=== PATIENT | male | born 1935 | race African-American/Black ===

== ENCOUNTER 2017-03-01 12:53 | Inpatient (IN) ==
[2017-03-01] MEDS ORDERED: NS 1,000 ML IV ONE (14:02)
[2017-03-01 14:22] LABS: MANUAL DIFF NEEDED? NO
[2017-03-01 14:30] LABS: BASO% 0.3 % (0.0-0.8); EOS% 0.7 % (0.0-10.0); HEMATOCRIT 32.2 % (42.0-52.0); HEMOGLOBIN 10.7 g/dL (14.0-18.0); IMM GRAN# 0.08 X1000 (0.0-0.04); IMM GRAN% 0.5 % (0.0-0.5); LYMPH# 1.87 X1000 (1.2-3.4); LYMPH% 12.4 % (20.5-51.1); MCH 28.5 PG (27-31); MCHC 33.2 g/dL (33-37); MCV 85.6 FL (81-99); MONO# 1.02 X1000 (0.11-0.59); MONO% 6.8 % (1.7-9.3); MPV 10.3 FL (7.4-10.4); NEUT% 79.3 % (42.2-75.2); PLT 389 X1000 (130-400); RBC 3.76 XMIL (4.7-6.1)
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
[2017-03-01 14:47] LABS: AGAP 12; ALBUMIN 2.6 g/dL (3.5-5.0); ALKALINE PHOSPHATASE 85 U/L (32-122); BUN 30 mg/dL (8-22); CALCIUM 9.5 mg/dL (8.8-10.2); CHLORIDE 93 mmol/L (98-107); COSMO 260; GOT 41 U/L (10-34); GPT 33 U/L (10-44); POTASSIUM 3.5 mmol/L (3.5-5.1); SODIUM 126 mmol/L (136-145); TCO2 21 mmol/L (25-35); TOTAL BILIRUBIN 0.42 mg/dL (0.20-1.00); TOTAL PROTEIN 7.7 g/dL (6.3-8.3)
[2017-03-01] MEDS ORDERED: ZOSYN 3.375 GM in NS 50 ML IV ONE (15:10)
--- NOTE | 2017-03-01 16:56 | Diag Imaging Result Doc PS360 ---
EXAM: CHEST-PORTABLE - 03/01/2017 HISTORY: r/o pna TECHNIQUE: Portable chest 4:51 PM COMPARISON: 01/25/2017 FINDINGS: Heart size appears within normal limits. There is elevation of left hemidiaphragm similar to the previous exam. There is subsegmental atelectasis of the bilateral lung bases. There is no consolidation, pleural effusion, or pneumothorax identified. IMPRESSION: Chronic elevation of left hemidiaphragm similar to the previous exam. Mild atelectasis at bilateral lung bases. No evidence of pneumonia. Electronically signed by Heri Solomon 03/01/2017 4:53 PM
[2017-03-01 17:22] LABS: IRON SATURATION 9 %; TIBC 172 ug/dL; TOTAL IRON 16 ug/dL (53-167); UNBOUND IRON 156 ug/dL (112-346)
[2017-03-01 17:25] LABS: FERRITIN 553 ng/mL (30-400)
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
[2017-03-01] MEDS ORDERED: ZOFRAN IV PRN (18:51)
[2017-03-01] MEDS ORDERED: VANCOMYCIN IV PER PHARMACY MISC SCH (18:51)
[2017-03-01] MEDS ORDERED: VANCOMYCIN 1,900 MG in NS 500 ML IV ONE (22:00)
[2017-03-01] MEDS: ZOSYN 3.375 GM in NS 50 ML IV SCH (22:34)
[2017-03-01] MEDS: NS 1,000 ML IV SCH (22:41)
[2017-03-02] MEDS: PERCOCET-5 PO PRN (01:58)
[2017-03-02] MEDS: TYLENOL PO PRN (03:23)
[2017-03-02] MEDS: HUMULIN R SUBQ SCH ×5 (05:45→21:35)
[2017-03-02] MEDS: PRILOSEC PO SCH (06:26)
[2017-03-02] MEDS: ZOSYN 3.375 GM in NS 50 ML IV SCH ×2 (06:26→11:22)
[2017-03-02 06:53] LABS: MANUAL DIFF NEEDED? NO
[2017-03-02 07:07] LABS: INR 1.18; PROTIME 12.5 Seconds (9.2-11.7); PTT 31.8 Seconds (22.0-36.0)
[2017-03-02 07:11] LABS: BASO% 0.2 % (0.0-0.8); EOS# 0.28 X1000 (0.0-0.7); EOS% 2.3 % (0.0-10.0); HEMATOCRIT 28.1 % (42.0-52.0); HEMOGLOBIN 8.9 g/dL (14.0-18.0); IMM GRAN# 0.04 X1000 (0.0-0.04); IMM GRAN% 0.3 % (0.0-0.5); LYMPH# 2.24 X1000 (1.2-3.4); LYMPH% 18.5 % (20.5-51.1); MCH 27.5 PG (27-31); MCHC 31.7 g/dL (33-37); MCV 86.7 FL (81-99); MONO# 0.93 X1000 (0.11-0.59); MONO% 7.7 % (1.7-9.3); MPV 10.2 FL (7.4-10.4); PLT 349 X1000 (130-400); RBC 3.24 XMIL (4.7-6.1)
[2017-03-02 07:12] LABS: HEMOGLOBIN A1C 5.8 % (4.8-6.0)
[2017-03-02 07:23] LABS: AGAP 10; ALBUMIN 2.4 g/dL (3.5-5.0); ALKALINE PHOSPHATASE 71 U/L (32-122); BUN 28 mg/dL (8-22); CALCIUM 9.2 mg/dL (8.8-10.2); CHLORIDE 99 mmol/L (98-107); COSMO 268; GOT 28 U/L (10-34); GPT 24 U/L (10-44); MAGNESIUM 1.7 mg/dL (1.5-2.7); POTASSIUM 3.3 mmol/L (3.5-5.1); SODIUM 131 mmol/L (136-145); TCO2 22 mmol/L (25-35); TOTAL BILIRUBIN 0.45 mg/dL (0.20-1.00)
[2017-03-02] MEDS: NICODERM PATCH TD SCH ×2 (09:29→09:31)
[2017-03-02] MEDS ORDERED: QUELICIN (DOSE) ONE (14:56)
[2017-03-02] MEDS ORDERED: ROBINUL ONE (14:56)
[2017-03-02] MEDS ORDERED: XYLOCAINE-MPF 2% ONE (14:56)
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
[2017-03-02] MEDS ORDERED: DIPRIVAN 1% ONE (16:28)
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
[2017-03-02] MEDS: MYCAMINE 100 MG in NS 100 ML IV SCH (21:00)
[2017-03-02] MEDS: LOVENOX SUBQ SCH (21:33)
[2017-03-02] MEDS: MAXIPIME 2 GM in NS 100 ML IV SCH (23:31)
[2017-03-03 00:12] LABS: URINE CULTURE NEEDED? NO; URINE SOURCE CLEAN CATCH
[2017-03-03 00:17] LABS: BILIRUBIN URINE NEGATIVE (NEGATIVE); BLOOD URINE TRACE (NEGATIVE); COLOR YELLOW; GLUCOSE URINE NEGATIVE (NEGATIVE); LEUKOCYTES URINE NEGATIVE (NEGATIVE); NITRITE URINE NEGATIVE (NEGATIVE); PH URINE 5.5; PROTEIN URINE 30 mg/dL (NEGATIVE); SP GRAVITY URINE 1.029; TURBIDITY URINE HAZY (CLEAR); URINE MICRO REVIEW NEEDED? YES; UROBILINOGEN URINE NORMAL (NORMAL)
[2017-03-03 00:38] LABS: UR EPITHELIAL CELLS <10 /HPF (<10); URINE BACTERIA NEGATIVE /HPF; URINE RBC <10 /HPF (<10); URINE WBC <10 /HPF (<10)
[2017-03-03 00:42] LABS: URINE CASTS NONE SEEN; URINE CRYSTALS NONE SEEN; URINE SMALL ROUND CELLS NONE SEEN
[2017-03-03] MEDS: VANCOMYCIN 1,100 MG in NS 250 ML IV SCH (01:53)
[2017-03-03] MEDS: NS 1,000 ML IV SCH (01:54)
[2017-03-03] MEDS: PRILOSEC PO SCH (06:38)
[2017-03-03 06:43] LABS: MANUAL DIFF NEEDED? NO
[2017-03-03] MEDS: HUMULIN R SUBQ SCH ×3 (06:50→16:00)
[2017-03-03 06:53] LABS: BASO% 0.4 % (0.0-0.8); EOS% 1.9 % (0.0-10.0); HEMOGLOBIN 8.6 g/dL (14.0-18.0); IMM GRAN# 0.03 X1000 (0.0-0.04); IMM GRAN% 0.3 % (0.0-0.5); LYMPH# 2.02 X1000 (1.2-3.4); LYMPH% 19.3 % (20.5-51.1); MCH 27.7 PG (27-31); MCHC 31.9 g/dL (33-37); MCV 86.8 FL (81-99); MONO# 0.71 X1000 (0.11-0.59); MONO% 6.8 % (1.7-9.3); MPV 10.4 FL (7.4-10.4); NEUT% 71.3 % (42.2-75.2); PLT 337 X1000 (130-400); RBC 3.11 XMIL (4.7-6.1)
[2017-03-03 07:07] LABS: AGAP 12; BUN 20 mg/dL (8-22); CALCIUM 8.3 mg/dL (8.8-10.2); CHLORIDE 102 mmol/L (98-107); COSMO 273; POTASSIUM 3.1 mmol/L (3.5-5.1); SODIUM 135 mmol/L (136-145); TCO2 21 mmol/L (25-35)
[2017-03-03] MEDS: MAXIPIME 2 GM in NS 100 ML IV SCH (10:59)
[2017-03-03] MEDS: NICODERM PATCH TD SCH (11:06)
[2017-03-03] MEDS ORDERED: POTASSIUM CHLORIDE 60 MEQ in NS 500 ML IV ONE (14:30)
[2017-03-03] MEDS ORDERED: CALMOSEPTINE OINTMENT TOP PRN (15:11)
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
[2017-03-03] MEDS: MYCAMINE 100 MG in NS 100 ML IV SCH (21:00)
[2017-03-03] MEDS: LOVENOX SUBQ SCH (21:25)
[2017-03-04] MEDS: VANCOMYCIN 1,100 MG in NS 250 ML IV SCH (01:16)
[2017-03-04] MEDS: MAXIPIME 2 GM in NS 100 ML IV SCH ×2 (01:16→11:52)
[2017-03-04] MEDS: HUMULIN R SUBQ SCH ×3 (04:31→18:44)
[2017-03-04] MEDS: PERCOCET-5 PO PRN (05:44)
[2017-03-04 07:00] LABS: MANUAL DIFF NEEDED? NO
[2017-03-04 07:08] LABS: BASO% 0.2 % (0.0-0.8); EOS# 0.22 X1000 (0.0-0.7); EOS% 2.4 % (0.0-10.0); HEMATOCRIT 26.9 % (42.0-52.0); HEMOGLOBIN 8.5 g/dL (14.0-18.0); IMM GRAN# 0.02 X1000 (0.0-0.04); IMM GRAN% 0.2 % (0.0-0.5); LYMPH# 2.05 X1000 (1.2-3.4); LYMPH% 22.3 % (20.5-51.1); MCH 27.3 PG (27-31); MCHC 31.6 g/dL (33-37); MCV 86.5 FL (81-99); MONO# 0.81 X1000 (0.11-0.59); MONO% 8.8 % (1.7-9.3); MPV 10.1 FL (7.4-10.4); NEUT% 66.1 % (42.2-75.2); PLT 363 X1000 (130-400); RBC 3.11 XMIL (4.7-6.1)
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
[2017-03-04 08:00] LABS: AGAP 11; BUN 11 mg/dL (8-22); CALCIUM 8.9 mg/dL (8.8-10.2); CHLORIDE 103 mmol/L (98-107); COSMO 271; POTASSIUM 3.3 mmol/L (3.5-5.1); SODIUM 136 mmol/L (136-145); TCO2 22 mmol/L (25-35)
[2017-03-04] MEDS: NICODERM PATCH TD SCH (11:52)
[2017-03-04] MEDS ORDERED: KLOR-CON PO ONE (13:56)
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
[2017-03-04] MEDS: MYCAMINE 100 MG in NS 100 ML IV SCH (21:14)
[2017-03-04] MEDS: LOVENOX SUBQ SCH (21:14)
[2017-03-05] MEDS: HUMULIN R SUBQ SCH ×5 (00:59→22:02)
[2017-03-05] MEDS: MAXIPIME 2 GM in NS 100 ML IV SCH (01:00)
[2017-03-05] MEDS ORDERED: VANCOMYCIN 1,750 MG in NS 250 ML IV SCH (01:00)
[2017-03-05] MEDS: PERCOCET-5 PO PRN (01:41)
[2017-03-05 06:30] LABS: MANUAL DIFF NEEDED? NO
[2017-03-05] MEDS: PRILOSEC PO SCH (06:34)
[2017-03-05] MEDS: TYLENOL PO PRN (06:38)
[2017-03-05 06:39] LABS: BASO% 0.3 % (0.0-0.8); EOS# 0.27 X1000 (0.0-0.7); EOS% 2.9 % (0.0-10.0); HEMATOCRIT 25.9 % (42.0-52.0); HEMOGLOBIN 8.1 g/dL (14.0-18.0); IMM GRAN# 0.03 X1000 (0.0-0.04); IMM GRAN% 0.3 % (0.0-0.5); LYMPH# 2.35 X1000 (1.2-3.4); LYMPH% 24.9 % (20.5-51.1); MCH 27.1 PG (27-31); MCHC 31.3 g/dL (33-37); MCV 86.6 FL (81-99); MONO# 0.75 X1000 (0.11-0.59); MONO% 7.9 % (1.7-9.3); NEUT% 63.7 % (42.2-75.2); PLT 364 X1000 (130-400); RBC 2.99 XMIL (4.7-6.1)
[2017-03-05 06:54] LABS: AGAP 12; BUN 11 mg/dL (8-22); CALCIUM 8.6 mg/dL (8.8-10.2); CHLORIDE 102 mmol/L (98-107); COSMO 275; SODIUM 136 mmol/L (136-145); TCO2 22 mmol/L (25-35)
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
[2017-03-05] MEDS: DIFLUCAN PO SCH (09:01)
[2017-03-05] MEDS: NICODERM PATCH TD SCH (09:01)
[2017-03-05] MEDS: KEFLEX PO SCH ×2 (09:01→16:45)
[2017-03-05] MEDS: LEVAQUIN PO SCH (09:01)
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
--- NOTE | 2017-03-05 14:00 | Extremity Venous Study ---
PROCEDURE NAME: Venous U/S Bilateral Legs - 03/02/2017 REFERRING PHYSICIAN: BRUNILDA Mcduffie. INTERPRETING PHYSICIAN: Jalen Rosario MD. BUSINESS INTELLIGENCE ADMINISTRATOR: Olivia. INDICATION: The patient has swelling in the right posterior knee area. FINDINGS: Bilateral lower extremity venous images accomplished. The common femoral, superficial femoral, deep femoral, popliteal, posterior tibial, peroneal, and greater saphenous are imaged bilaterally. Doppler is used to evaluate the veins for spontaneity, phasicity, respiratory excursion, and distal augmentation. All veins are compressible. Some reflux is noted in the right superficial femoral vein. INTERPRETATION: 1. No evidence of deep or superficial venous thrombosis in either lower extremity veins identified. 2. Reflux noted in the right superficial femoral vein. cc: MD Shelby Horton CRNP
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
[2017-03-05] MEDS: LOVENOX SUBQ SCH (22:03)
[2017-03-06] MEDS: KEFLEX PO SCH ×3 (00:43→15:13)
[2017-03-06] MEDS: PRILOSEC PO SCH (06:44)
[2017-03-06] MEDS: HUMULIN R SUBQ SCH ×3 (06:45→22:36)
[2017-03-06 07:18] LABS: MANUAL DIFF NEEDED? NO
[2017-03-06 07:27] LABS: BASO% 0.4 % (0.0-0.8); EOS% 2.6 % (0.0-10.0); HEMATOCRIT 28.6 % (42.0-52.0); HEMOGLOBIN 9.1 g/dL (14.0-18.0); IMM GRAN# 0.02 X1000 (0.0-0.04); IMM GRAN% 0.2 % (0.0-0.5); LYMPH# 2.43 X1000 (1.2-3.4); LYMPH% 21.1 % (20.5-51.1); MCH 27.2 PG (27-31); MCHC 31.8 g/dL (33-37); MCV 85.6 FL (81-99); MONO# 0.81 X1000 (0.11-0.59); MPV 9.8 FL (7.4-10.4); NEUT% 68.7 % (42.2-75.2); PLT 417 X1000 (130-400); RBC 3.34 XMIL (4.7-6.1)
[2017-03-06 07:56] LABS: AGAP 11; BUN 10 mg/dL (8-22); CHLORIDE 101 mmol/L (98-107); COSMO 271; POTASSIUM 3.1 mmol/L (3.5-5.1); SODIUM 136 mmol/L (136-145); TCO2 24 mmol/L (25-35)
[2017-03-06] MEDS: LEVAQUIN PO SCH (10:01)
[2017-03-06] MEDS: DIFLUCAN PO SCH (10:01)
[2017-03-06] MEDS: POTASSIUM CHLORIDE 60 MEQ in NS 500 ML IV SCH ×2 (14:50→22:33)
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
[2017-03-06] MEDS: LOVENOX SUBQ SCH (22:33)
[2017-03-07] MEDS: KEFLEX PO SCH ×4 (01:05→15:44)
[2017-03-07] MEDS: PRILOSEC PO SCH (06:17)
[2017-03-07] MEDS: HUMULIN R SUBQ SCH ×4 (06:17→20:03)
[2017-03-07 06:49] LABS: MANUAL DIFF NEEDED? NO
[2017-03-07 06:54] LABS: BASO% 0.4 % (0.0-0.8); EOS# 0.29 X1000 (0.0-0.7); EOS% 2.6 % (0.0-10.0); HEMATOCRIT 29.4 % (42.0-52.0); HEMOGLOBIN 9.3 g/dL (14.0-18.0); IMM GRAN# 0.03 X1000 (0.0-0.04); IMM GRAN% 0.3 % (0.0-0.5); LYMPH# 2.57 X1000 (1.2-3.4); LYMPH% 23.1 % (20.5-51.1); MCH 27.1 PG (27-31); MCHC 31.6 g/dL (33-37); MCV 85.7 FL (81-99); MONO# 0.84 X1000 (0.11-0.59); MONO% 7.6 % (1.7-9.3); MPV 9.6 FL (7.4-10.4); PLT 444 X1000 (130-400); RBC 3.43 XMIL (4.7-6.1)
[2017-03-07 07:18] LABS: AGAP 8; BUN 9 mg/dL (8-22); CALCIUM 8.7 mg/dL (8.8-10.2); CHLORIDE 100 mmol/L (98-107); COSMO 268; POTASSIUM 4.3 mmol/L (3.5-5.1); SODIUM 135 mmol/L (136-145); TCO2 27 mmol/L (25-35)
[2017-03-07] MEDS: LEVAQUIN PO SCH (08:10)
[2017-03-07] MEDS: DIFLUCAN PO SCH (08:11)
[2017-03-07 10:50] LABS: URINE CULTURE NEEDED? NO; URINE MICRO REVIEW NEEDED? NO; URINE SOURCE CATH
[2017-03-07 11:04] LABS: BILIRUBIN URINE NEGATIVE (NEGATIVE); BLOOD URINE NEGATIVE (NEGATIVE); COLOR YELLOW; GLUCOSE URINE NEGATIVE (NEGATIVE); LEUKOCYTES URINE NEGATIVE (NEGATIVE); NITRITE URINE NEGATIVE (NEGATIVE); PH URINE 5.5; PROTEIN URINE NEGATIVE (NEGATIVE); TURBIDITY URINE CLEAR (CLEAR); UROBILINOGEN URINE NORMAL (NORMAL)
[2017-03-07 11:06] LABS: UR EPITHELIAL CELLS <10 /HPF (<10); URINE BACTERIA NEGATIVE /HPF; URINE RBC <10 /HPF (<10); URINE WBC <10 /HPF (<10)
[2017-03-07] MEDS: TYLENOL PO PRN (13:05)
[2017-03-07] MEDS: PERCOCET-5 PO PRN (15:45)
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
[2017-03-07] MEDS: LOVENOX SUBQ SCH (20:05)
[2017-03-08] MEDS: KEFLEX PO SCH ×3 (00:19→16:44)
[2017-03-08] MEDS: PRILOSEC PO SCH (06:23)
[2017-03-08] MEDS: HUMULIN R SUBQ SCH ×4 (06:26→23:07)
[2017-03-08 06:47] LABS: MANUAL DIFF NEEDED? NO
[2017-03-08 06:56] LABS: BASO% 0.3 % (0.0-0.8); EOS# 0.36 X1000 (0.0-0.7); EOS% 3.6 % (0.0-10.0); HEMOGLOBIN 9.2 g/dL (14.0-18.0); IMM GRAN# 0.02 X1000 (0.0-0.04); IMM GRAN% 0.2 % (0.0-0.5); LYMPH# 2.25 X1000 (1.2-3.4); LYMPH% 22.3 % (20.5-51.1); MCH 27.4 PG (27-31); MCHC 31.7 g/dL (33-37); MCV 86.3 FL (81-99); MONO# 0.74 X1000 (0.11-0.59); MONO% 7.3 % (1.7-9.3); MPV 9.6 FL (7.4-10.4); NEUT% 66.3 % (42.2-75.2); PLT 413 X1000 (130-400); RBC 3.36 XMIL (4.7-6.1)
[2017-03-08 07:38] LABS: AGAP 13; BUN 14 mg/dL (8-22); CALCIUM 9.3 mg/dL (8.8-10.2); CHLORIDE 97 mmol/L (98-107); COSMO 269; POTASSIUM 4.2 mmol/L (3.5-5.1); SODIUM 134 mmol/L (136-145); TCO2 24 mmol/L (25-35)
[2017-03-08] MEDS: LEVAQUIN PO SCH (08:55)
[2017-03-08] MEDS: DIFLUCAN PO SCH (08:55)
[2017-03-08] MEDS: PRINIVIL PO SCH (14:28)
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
[2017-03-08] MEDS: ZOSYN 4.5 GM in NS 100 ML IV SCH (20:22)
[2017-03-08] MEDS: LOVENOX SUBQ SCH (20:22)
[2017-03-08] MEDS: PERCOCET-5 PO PRN (22:36)
[2017-03-09] MEDS: ZOSYN 4.5 GM in NS 100 ML IV SCH ×4 (02:00→21:02)
[2017-03-09] MEDS: HUMULIN R SUBQ SCH ×4 (06:16→21:03)
[2017-03-09] MEDS: PRILOSEC PO SCH ×2 (06:29→07:02)
[2017-03-09] MEDS: DIFLUCAN PO SCH (08:12)
[2017-03-09] MEDS: PRINIVIL PO SCH (08:12)
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
[2017-03-09] MEDS: PERCOCET-5 PO PRN (14:44)
[2017-03-09] MEDS: LOVENOX SUBQ SCH (21:02)
[2017-03-09] MEDS: VFEND PO SCH ×2 (21:04)
[2017-03-10] MEDS: ZOSYN 4.5 GM in NS 100 ML IV SCH ×3 (02:00→15:02)
[2017-03-10] MEDS: HUMULIN R SUBQ SCH ×2 (06:31→15:01)
[2017-03-10] MEDS: PRILOSEC PO SCH (06:32)
[2017-03-10] MEDS: VFEND PO SCH (08:32)
[2017-03-10] MEDS: PRINIVIL PO SCH (08:32)
[2017-03-10] MEDS: PERCOCET-5 PO PRN ×2 (08:33→19:09)
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
[2017-03-10 17:07] VITALS: BP 122/53
== END 2017-03-10 18:30 ==
LOC: ED 12:53 → 3N 18:11 → SUATTDRO 18:11
PROVIDERS: ATTEND Internal Medicine

== ENCOUNTER 2017-03-24 18:30 | Inpatient (IN) ==
[2017-03-24] MEDS ORDERED: VANCOMYCIN 1 GM/NS 1 GM/250 ML IVPB IV ONE (20:19)
[2017-03-24] MEDS ORDERED: ZOSYN 3.375 GM in NS 50 ML IV ONE (20:19)
[2017-03-24 20:20] LABS: MANUAL DIFF NEEDED? NO
[2017-03-24 20:29] LABS: BASO% 0.4 % (0.0-0.8); EOS# 0.31 X1000 (0.0-0.7); EOS% 2.9 % (0.0-10.0); HEMATOCRIT 27.3 % (42.0-52.0); HEMOGLOBIN 8.9 g/dL (14.0-18.0); IMM GRAN# 0.03 X1000 (0.0-0.04); IMM GRAN% 0.3 % (0.0-0.5); LYMPH% 33.1 % (20.5-51.1); MCH 26.7 PG (27-31); MCHC 32.6 g/dL (33-37); MONO# 1.04 X1000 (0.11-0.59); MONO% 9.6 % (1.7-9.3); MPV 9.6 FL (7.4-10.4); NEUT% 53.7 % (42.2-75.2); PLT 437 X1000 (130-400); RBC 3.33 XMIL (4.7-6.1)
[2017-03-24 20:35] LABS: INR 1.13; PTT 31.5 Seconds (22.0-36.0)
--- NOTE | 2017-03-24 20:37 | Diag Imaging Result Doc PS360 ---
EXAM: CHEST-PORTABLE HISTORY: OR TECHNIQUE: Semiupright portable COMPARISON: 03/01/2017 FINDINGS: The left hemidiaphragm is elevated. Heart is not enlarged. The vessels are not distended. No pneumonia. No pleural effusions identified. Long-standing arthritic changes to each shoulder. IMPRESSION: Stable chest Electronically signed by Isidro Magaña 03/24/2017 8:34 PM
[2017-03-24 20:39] LABS: AGAP 11; ALBUMIN 2.9 g/dL (3.5-5.0); ALKALINE PHOSPHATASE 172 U/L (32-122); BUN 10 mg/dL (8-22); CALCIUM 9.2 mg/dL (8.8-10.2); CHLORIDE 96 mmol/L (98-107); COSMO 270; GOT 51 U/L (10-34); GPT 32 U/L (10-44); POTASSIUM 3.6 mmol/L (3.5-5.1); SODIUM 136 mmol/L (136-145); TCO2 29 mmol/L (25-35); TOTAL BILIRUBIN 0.37 mg/dL (0.20-1.00); TOTAL PROTEIN 7.7 g/dL (6.3-8.3)
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
--- NOTE | 2017-03-24 20:58 | EKG Report ---
Test Performed on : 03/24/2017 8:40:50 PM Test Reason : pre op Blood Pressure : / mmHG Vent. Rate : 079 BPM Atrial Rate : 079 BPM P-R Int : 110 ms QRS Dur : 118 ms QT Int : 430 ms P-R-T Axes : 005 016 055 degrees QTc Int : 493 ms Sinus rhythm. with short MN Incomplete right bundle branch block Prolonged QT Abnormal ECG When compared with ECG of 25-JAN-2017 20:32, Criteria for Inferior infarct are no longer present Nonspecific T wave abnormality now evident in Inferior leads Nonspecific T wave abnormality now evident in Lateral leads Unconfirmed Result
[2017-03-24 21:22] LABS: URINE MICRO REVIEW NEEDED? NO; URINE SOURCE CATH
[2017-03-24 21:27] LABS: BILIRUBIN URINE NEGATIVE (NEGATIVE); BLOOD URINE MODERATE (NEGATIVE); COLOR YELLOW; GLUCOSE URINE NEGATIVE (NEGATIVE); LEUKOCYTES URINE MODERATE (NEGATIVE); NITRITE URINE NEGATIVE (NEGATIVE); PH URINE 6.5; PROTEIN URINE 50 mg/dL (NEGATIVE); SP GRAVITY URINE 1.022; TURBIDITY URINE HAZY (CLEAR); UROBILINOGEN URINE 6 mg/dL (NORMAL)
[2017-03-24 21:28] LABS: UR EPITHELIAL CELLS <10 /HPF (<10); URINE BACTERIA NEGATIVE /HPF; URINE CULTURE NEEDED? YES; URINE RBC TNTC /HPF (<10)
[2017-03-24] MEDS ORDERED: ZOFRAN IV PRN (23:13)
[2017-03-24] MEDS ORDERED: NORCO-7.5 PO PRN (23:13)
[2017-03-24] MEDS ORDERED: VANCOMYCIN IV PER PHARMACY MISC SCH (23:13)
[2017-03-24] MEDS ORDERED: NS 1,000 ML IV SCH (23:13)
[2017-03-25] MEDS: ZOSYN 3.375 GM in NS 50 ML IV SCH ×4 (02:00→22:04)
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
[2017-03-25 06:31] LABS: MANUAL DIFF NEEDED? NO
[2017-03-25 06:36] LABS: BASO% 0.5 % (0.0-0.8); EOS# 0.37 X1000 (0.0-0.7); EOS% 3.8 % (0.0-10.0); HEMATOCRIT 27.5 % (42.0-52.0); HEMOGLOBIN 8.8 g/dL (14.0-18.0); IMM GRAN# 0.02 X1000 (0.0-0.04); IMM GRAN% 0.2 % (0.0-0.5); LYMPH# 2.61 X1000 (1.2-3.4); LYMPH% 26.9 % (20.5-51.1); MCH 26.3 PG (27-31); MCV 82.3 FL (81-99); MONO# 0.82 X1000 (0.11-0.59); MONO% 8.5 % (1.7-9.3); MPV 9.3 FL (7.4-10.4); NEUT% 60.1 % (42.2-75.2); PLT 412 X1000 (130-400); RBC 3.34 XMIL (4.7-6.1)
[2017-03-25] MEDS: HUMALOG SUBQ SCH ×4 (07:00→22:05)
[2017-03-25 07:19] LABS: AGAP 11; BUN 9 mg/dL (8-22); CHLORIDE 100 mmol/L (98-107); COSMO 275; POTASSIUM 3.5 mmol/L (3.5-5.1); SODIUM 139 mmol/L (136-145); TCO2 28 mmol/L (25-35)
[2017-03-25] MEDS: HEPARIN SUBQ SCH ×2 (09:54→22:23)
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
[2017-03-25] MEDS ORDERED: D50W SYRINGE IV ONE (15:28)
[2017-03-25] MEDS: D5 NS 1,000 ML IV SCH (16:24)
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
[2017-03-25] MEDS ORDERED: XYLOCAINE-MPF 2% ONE (19:02)
[2017-03-25] MEDS ORDERED: DIPRIVAN 1% ONE (19:03)
[2017-03-25] MEDS ORDERED: MORPHINE ONE (19:40)
[2017-03-25] MEDS ORDERED: DILAUDID ONE (20:48)
[2017-03-25] MEDS ORDERED: NAROPIN 0.5% ONE (20:49)
[2017-03-25] MEDS ORDERED: NS 1,000 ML ONE (21:32)
[2017-03-25] MEDS ORDERED: SODIUM CHLORIDE 0.9% INJ PRN (21:35)
[2017-03-25] MEDS ORDERED: PHENERGAN IV PRN (21:35)
[2017-03-25] MEDS: NS 1,000 ML IV SCH (21:59)
[2017-03-25] MEDS: APRESOLINE IV PRN (22:55)
[2017-03-26] MEDS: D5 NS 1,000 ML IV SCH ×2 (00:20→18:11)
[2017-03-26] MEDS: ZOSYN 3.375 GM in NS 50 ML IV SCH ×4 (02:53→22:37)
[2017-03-26] MEDS: MORPHINE IV PRN ×4 (02:55→18:48)
[2017-03-26 05:12] LABS: MANUAL DIFF NEEDED? NO
[2017-03-26 05:41] LABS: AGAP 11; BUN 10 mg/dL (8-22); CALCIUM 8.9 mg/dL (8.8-10.2); CHLORIDE 101 mmol/L (98-107); COSMO 276; MAGNESIUM 1.7 mg/dL (1.5-2.7); POTASSIUM 3.9 mmol/L (3.5-5.1); SODIUM 139 mmol/L (136-145); TCO2 27 mmol/L (25-35)
[2017-03-26 05:42] LABS: BASO% 0.3 % (0.0-0.8); EOS% 2.1 % (0.0-10.0); HEMATOCRIT 36.3 % (42.0-52.0); IMM GRAN# 0.03 X1000 (0.0-0.04); IMM GRAN% 0.2 % (0.0-0.5); MCH 27.6 PG (27-31); MCHC 33.1 g/dL (33-37); MCV 83.6 FL (81-99); MONO# 0.93 X1000 (0.11-0.59); MONO% 6.6 % (1.7-9.3); MPV 9.7 FL (7.4-10.4); NEUT% 73.8 % (42.2-75.2); PLT 423 X1000 (130-400); RBC 4.34 XMIL (4.7-6.1)
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
[2017-03-26] MEDS: LOVENOX SUBQ SCH (05:56)
[2017-03-26] MEDS: HUMALOG SUBQ SCH ×4 (06:12→22:26)
[2017-03-26] MEDS: PERIDEX MT SCH ×2 (09:32→22:36)
[2017-03-26] MEDS ORDERED: VANCOMYCIN 1.5 GM in NS 250 ML IV ONE (11:00)
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
[2017-03-26] MEDS: NS 1,000 ML IV SCH (12:44)
[2017-03-26] MEDS: SANTYL OINT TOP SCH (15:11)
--- NOTE | 2017-03-26 16:32 | PROGRESS NOTE ---
DATE: 03/26/2017 SUBJECTIVE: This patient is lying comfortably in bed. He is complaining of right stump pain/discomfort. He is sleepy but arousable. He has been having bowel movements. OBJECTIVE: Vital Signs: Temperature 97.2 degrees, pulse 93, respiratory rate 12, blood pressure 155/72, oxygen saturation 97% on room air. HEENT: Head normocephalic. No trauma. PERRLA. Neck: Supple. No JVD. No masses. Central trachea. Chest: Clear to auscultation. No wheezing. No rales. Abdomen: Soft, nontender, nondistended. No hepatosplenomegaly. Extremities: Right AKA that is covered with a dressing. No signs of bleed. Surgery Department following. Neurological Examination: The patient is sleepy but arousable. Following commands. LABORATORY: WBC 14.1, hemoglobin 12, hematocrit 36.3, platelets 423,000. Sodium 139, potassium 3.9, chloride 101, bicarbonate 27, BUN 11, BUN 10, creatinine 0.7, glucose 81, calcium 8.9. ASSESSMENT AND PLAN: 1. Right leg necrotic wound status post right above knee amputation, continue with same management and pain medication. Physical Therapy on board. Surgery Department following this patient. 2. History of hypertension. I will put this patient back on lisinopril. His kidney function is fine. 3. Type 2 diabetes. Continue with sliding scale insulin and pattern blood sugar. 4. This patient is status post right above knee amputation. Probably he will need to be sent to a rehabilitation facility or long-term. At this moment he is really sleepy so I could not have a long conversation with the patient. No family members at the bedside. I stopped his vancomycin and I will continue with Zosyn. Blood culture and urine culture have been negative for the past 48 hours. If tomorrow nothing has grown on those cultures, probably also we will stop the Zosyn, but since his white blood cells are elevated I will keep him on that antibiotic for now. cc: Saran Quintero MD
[2017-03-26] MEDS: APRESOLINE IV PRN (16:41)
[2017-03-26] MEDS: TYLENOL PO PRN (16:41)
[2017-03-27] MEDS: MORPHINE IV PRN ×3 (00:27→14:16)
[2017-03-27] MEDS: NS 1,000 ML IV SCH ×2 (02:47→16:03)
[2017-03-27] MEDS: ZOSYN 3.375 GM in NS 50 ML IV SCH ×4 (02:47→20:24)
[2017-03-27 05:29] LABS: MANUAL DIFF NEEDED? NO
[2017-03-27 05:34] LABS: BASO% 0.2 % (0.0-0.8); EOS# 0.24 X1000 (0.0-0.7); EOS% 1.8 % (0.0-10.0); HEMATOCRIT 31.8 % (42.0-52.0); HEMOGLOBIN 10.7 g/dL (14.0-18.0); IMM GRAN# 0.06 X1000 (0.0-0.04); IMM GRAN% 0.4 % (0.0-0.5); LYMPH% 21.3 % (20.5-51.1); MCH 28.1 PG (27-31); MCHC 33.6 g/dL (33-37); MCV 83.5 FL (81-99); MONO# 1.25 X1000 (0.11-0.59); MONO% 9.2 % (1.7-9.3); MPV 9.5 FL (7.4-10.4); NEUT% 67.1 % (42.2-75.2); PLT 384 X1000 (130-400); RBC 3.81 XMIL (4.7-6.1)
[2017-03-27] MEDS: D5 NS 1,000 ML IV SCH ×2 (05:41→09:12)
[2017-03-27 05:54] LABS: AGAP 13; BUN 9 mg/dL (8-22); CALCIUM 8.2 mg/dL (8.8-10.2); CHLORIDE 100 mmol/L (98-107); COSMO 272; POTASSIUM 3.6 mmol/L (3.5-5.1); SODIUM 137 mmol/L (136-145); TCO2 24 mmol/L (25-35)
[2017-03-27] MEDS: HUMALOG SUBQ SCH ×4 (06:32→21:05)
[2017-03-27] MEDS: LOVENOX SUBQ SCH (06:34)
[2017-03-27] MEDS: PRINIVIL PO SCH (09:15)
[2017-03-27] MEDS: PERIDEX MT SCH ×2 (09:17→20:25)
--- NOTE | 2017-03-27 10:53 | PROGRESS NOTE ---
DATE: 03/27/2017 INDICATIONS: Mr. Lance Graham Jr is an 81-year-old black male who is now postop day 2 from a right bkwpl-nhz-zwir amputation for gangrene involving his right leg. Today, he awakens. He is in some pain at the amputation site. He did not eat breakfast. His rpxig-ere-mmeq amputation is dressed and the dressing is dry. OBJECTIVE: His heart rate is 83-103. Blood pressure 155/75. O2 saturation 99%. He does have a Frias catheter tube in place to keep his azvsm-lbu-ovyw amputation site clean. He had a bowel movement several days ago. DIAGNOSTIC DATA: His hematocrit is 32%. White blood cell count is 13.6 and that is down from 14. His BUN is 9 and creatinine 0.7. PLAN: He has a trapeze bar over is bed. We have our wound care nurse checking on how healthy his skin is, especially posteriorly above his buttocks. We have asked physical therapy to help him improve his strength and start teaching him about transfers. We will leave this dressing in place at this time. He is remaining on IV antibiotics and we will continue those until is white blood cell count tends towards normal. He is on vancomycin and Zosyn. We need to encourage nutrition. cc: Moni Stephenson MD
[2017-03-27] MEDS ORDERED: VANCOMYCIN 1 GM/NS 1 GM/250 ML IVPB IV SCH (11:00)
[2017-03-27] MEDS ORDERED: VANCOMYCIN IV PER PHARMACY MISC SCH (15:00)
[2017-03-27] MEDS: SANTYL OINT TOP SCH (16:01)
[2017-03-27] MEDS: VANCOMYCIN 1 GM/NS 1 GM/250 ML IVPB IV SCH (16:42)
[2017-03-27] MEDS: TYLENOL PO PRN (16:47)
--- NOTE | 2017-03-27 17:02 | PROGRESS NOTE ---
DATE: 03/27/2017 SUBJECTIVE: This patient is lying comfortably in bed. He is alert and oriented x3. He is complaining of right stump pain/discomfort. He is tolerating p.o., but sometimes he is just eating some bites. Physical therapy is on board. He looks a little bit better today compared with yesterday. OBJECTIVE: Vital Signs: Temperature 98 degrees, pulse 97, respiratory rate 18, blood pressure 150/69, oxygen saturation 100% on room air. HEENT: Head normocephalic. No trauma. PERRLA. Neck: Supple. No JVD. No masses. Central trachea. Chest: Clear to auscultation. No wheezing. No rales. Abdomen: Soft, nontender, nondistended. No hepatosplenomegaly. Extremities: He has a right AKA that is covered with a dressing. No signs of active bleed. Surgery department following. Neurological: The patient is alert. He is oriented x3. He is following commands. LABORATORY DATA: WBC 13.6, hemoglobin 10.7, hematocrit 31.8, platelets 384,000. Sodium 137, potassium 3.6, chloride 100, bicarbonate 24, BUN 9, creatinine 0.7, glucose 80, calcium 8.2. ASSESSMENT AND PLAN: 1. Right leg necrotic wound, status post right todic-wxh-kqhp amputation. Continue with the same management and pain medication. Physical therapy on board. Surgery department is following this patient closely. 2. History of hypertension. Blood pressure is around 150s. I will put this patient on amlodipine 2.5 mg by mouth twice a day, and if the blood pressure is still elevated, I will increase it to 5 twice a day. 3. Type 2 diabetes. Continue with sliding scale insulin and pattern blood sugars. 4. Leukocytosis. Continue with antibiotics. WBC is a little bit better. The cultures have been negative. Probably in 1 or 2 days, we are going to be able to stop it. 5. Physical deconditioning. Physical therapy is on board, and hopefully he will be discharged to a rehabilitation center at the beginning of the next week. cc: Saran Quintero MD
[2017-03-27] MEDS: NORVASC PO SCH (20:24)
[2017-03-28] MEDS: ZOSYN 3.375 GM in NS 50 ML IV SCH ×4 (02:59→20:45)
[2017-03-28] MEDS: MORPHINE IV PRN ×2 (03:02→05:04)
[2017-03-28 05:54] LABS: MANUAL DIFF NEEDED? NO
[2017-03-28] MEDS: LOVENOX SUBQ SCH (06:02)
[2017-03-28 06:06] LABS: BASO% 0.2 % (0.0-0.8); EOS# 0.34 X1000 (0.0-0.7); EOS% 2.7 % (0.0-10.0); HEMATOCRIT 31.4 % (42.0-52.0); HEMOGLOBIN 10.4 g/dL (14.0-18.0); IMM GRAN# 0.05 X1000 (0.0-0.04); IMM GRAN% 0.4 % (0.0-0.5); LYMPH# 2.63 X1000 (1.2-3.4); LYMPH% 20.8 % (20.5-51.1); MCH 27.8 PG (27-31); MCHC 33.1 g/dL (33-37); MONO# 1.15 X1000 (0.11-0.59); MONO% 9.1 % (1.7-9.3); MPV 9.8 FL (7.4-10.4); NEUT% 66.8 % (42.2-75.2); PLT 390 X1000 (130-400); RBC 3.74 XMIL (4.7-6.1)
[2017-03-28 06:20] LABS: AGAP 12; BUN 9 mg/dL (8-22); CALCIUM 8.5 mg/dL (8.8-10.2); CHLORIDE 102 mmol/L (98-107); COSMO 277; POTASSIUM 3.8 mmol/L (3.5-5.1); SODIUM 139 mmol/L (136-145); TCO2 25 mmol/L (25-35)
[2017-03-28] MEDS: HUMALOG SUBQ SCH ×4 (06:20→22:25)
[2017-03-28] MEDS: PERIDEX MT SCH ×2 (08:00→20:54)
[2017-03-28] MEDS: SANTYL OINT TOP SCH (08:01)
[2017-03-28] MEDS: NORVASC PO SCH ×2 (08:02→20:49)
[2017-03-28] MEDS: PRINIVIL PO SCH (08:03)
--- NOTE | 2017-03-28 09:15 | PROGRESS NOTE ---
DATE: 03/28/2017 SUBJECTIVE: Mr. Graham is now postop day 3 from a right zbijs-jhp-svtp amputation. This morning, he is awake and cooperative. He is having some pain in his right qdhen-cax-zdeu amputation stump. OBJECTIVE: His heart rate is 76, blood pressure 164/77, O2 saturation 99%. He is afebrile. He continues to receive IV vancomycin and Zosyn. His white blood cell count is trending downward. It was 13.6 yesterday and 12.6 today. His hematocrit is 31%. Electrolytes are within normal limits. BUN of 9. Creatinine is 0.5. His oral intake is marginal. He has had a bowel movement. He has a trapeze bar over his bed. We have asked Physical Therapy to work with him, and we also have the Wound Care nurse checking him for any skin breakdown. We have left his Frias catheter in place because of his fpwtg-jxc-hpkw amputation wound. PLAN: Continue supportive care. As his white count returns to normal, we will stop his antibiotics. We will have to discontinue his Frias probably prior to discharge. cc: Moni Stephenson MD
[2017-03-28] MEDS: NORCO-10 PO PRN (16:07)
[2017-03-28] MEDS: VANCOMYCIN 1 GM/NS 1 GM/250 ML IVPB IV SCH (16:07)
[2017-03-28] MEDS: NS 1,000 ML IV SCH (16:13)
--- NOTE | 2017-03-28 17:57 | PROGRESS NOTE ---
DATE: 03/28/2017 SUBJECTIVE: Patient lying comfortable in bed. He is awake, he is alert. He does not express any complaints at all. OBJECTIVE: Vital signs are as follows: Temperature in 98.9 with a pulse of 85, respirations 16, blood pressure 165/63, oxygen saturation 99%. HEENT: Atraumatic, normocephalic. Neck: No lymphadenopathy or thyromegaly. Cardiovascular System: S1, S2. Respiratory System: Has evidence of good air entry bilaterally. Abdomen: Soft, nontender. No masses felt. Extremities: Has right above knee amputation with the stump site dressed. LABS: As follows: WBC 12.6, hematocrit 31.4, platelet count of 398,000. Sodium is 139, potassium 3.8, chloride 102, bicarb 25, BUN is 9, creatinine 0.5. ASSESSMENT AND PLAN: 1. Status post right above-knee amputation. Optimize pain control. Maintain patient on deep vein thrombosis prophylaxis. Continue physical therapy. 2. Hypertension. Blood pressure is still slightly elevated. We will optimize blood pressure control. 3. Diabetes mellitus type 2. Maintain patient on sliding scale insulin and follow up on blood sugar patterns. 4. Disposition. Patient will benefit from a jail facility placement. cc: Hector Judge MD
[2017-03-29] MEDS: ZOSYN 3.375 GM in NS 50 ML IV SCH ×4 (02:35→20:06)
[2017-03-29] MEDS: LOVENOX SUBQ SCH (05:25)
[2017-03-29 05:40] LABS: MANUAL DIFF NEEDED? NO
[2017-03-29 05:46] LABS: BASO% 0.3 % (0.0-0.8); EOS# 0.33 X1000 (0.0-0.7); EOS% 2.8 % (0.0-10.0); HEMATOCRIT 32.1 % (42.0-52.0); HEMOGLOBIN 10.5 g/dL (14.0-18.0); IMM GRAN# 0.04 X1000 (0.0-0.04); IMM GRAN% 0.3 % (0.0-0.5); LYMPH# 3.27 X1000 (1.2-3.4); LYMPH% 27.3 % (20.5-51.1); MCH 27.6 PG (27-31); MCHC 32.7 g/dL (33-37); MCV 84.3 FL (81-99); MONO# 0.84 X1000 (0.11-0.59); MPV 9.6 FL (7.4-10.4); NEUT% 62.3 % (42.2-75.2); PLT 428 X1000 (130-400); RBC 3.81 XMIL (4.7-6.1)
[2017-03-29 06:05] LABS: AGAP 10; BUN 8 mg/dL (8-22); CALCIUM 8.5 mg/dL (8.8-10.2); CHLORIDE 101 mmol/L (98-107); COSMO 270; POTASSIUM 3.9 mmol/L (3.5-5.1); SODIUM 136 mmol/L (136-145); TCO2 25 mmol/L (25-35)
[2017-03-29] MEDS: HUMALOG SUBQ SCH ×4 (06:31→20:06)
[2017-03-29] MEDS: PERIDEX MT SCH ×2 (08:26→20:06)
[2017-03-29] MEDS: NORVASC PO SCH ×2 (08:26→20:06)
[2017-03-29] MEDS: PRINIVIL PO SCH (08:26)
[2017-03-29] MEDS: SANTYL OINT TOP SCH (08:27)
[2017-03-29] MEDS: NORCO-10 PO PRN ×2 (11:50→18:14)
--- NOTE | 2017-03-29 14:17 | PROGRESS NOTE ---
DATE: 03/29/2017 Mr. Graham is now postop day 4 from a right fylbr-iyl-epfj amputation for gangrene involving this right leg. I think each day he has done better clinically. His heart rate 78, blood pressure 150/75, O2 saturation 99%. He has no work of breathing. He is awake and cooperative. He ate a good lunch. His white blood cell count is decreasing. It went from 12.6 to 12, hematocrit is 32%. BUN and creatinine are 8 and 0.5. All the rest of his electrolytes were satisfactory. His wound remains dressed. He has a trapeze bar over his bed. We have asked Physical Therapy to evaluate him. We have also asked the wound nurse to care for any skin breakdown. He remains on vancomycin and Zosyn. I think we ought to continue those until his white blood cell count is normal. We need social media strategist to help with disposition. He still has a Frias catheter tube in place just to keep his right payzv-rph-brsi wound neat at this time. His temperature is 97.3 degrees. cc: Moni Stephenson MD
[2017-03-29] MEDS: MORPHINE IV PRN (14:41)
--- NOTE | 2017-03-29 16:05 | PROGRESS NOTE ---
DATE: 03/29/2017 SUBJECTIVE: This patient is lying comfortably in bed. He is alert and oriented x3. He is still complaining of right lower extremity discomfort. He is tolerating p.o. Last bowel movement reported was yesterday. I will put this patient on stool softener because he is getting narcotics as well. OBJECTIVE: Vital Signs: Temperature 97.3 degrees, pulse 78, respiratory rate 16, blood pressure 150/75, oxygen saturation 99 on room air. HEENT: Head normocephalic. No trauma. PERRLA. Neck: Supple. No JVD. No masses. Central trachea. Chest: Clear to auscultation. No wheezing. No rales. Abdomen: Soft, nontender, nondistended. No hepatosplenomegaly. Extremity: He has a right AKA that is covered with a dressing. No signs of active bleed. Surgery department following. Neurological: The patient is alert and oriented x3. He is following commands. LABORATORY: WBC 11.9, hemoglobin 10.5, hematocrit 32.1, platelets 428,000. Sodium 136, potassium 3.9, chloride 101, bicarbonate 25, BUN 8, creatinine 0.5, glucose 102, calcium 8.5. ASSESSMENT AND PLAN: 1. Right leg necrotic wound status post right ashxi-jju-hhfm amputation. Continue with the same management and pain medication and physical therapy on board. Surgeon department is following this patient closely. 2. History of hypertension. Blood pressure still a little bit elevated. I will increase the dose of amlodipine from 2.5 mg twice a day to 5 twice a day. 3. Type 2 diabetes. Continue with sliding scale insulin and pattern of blood sugar. 4. Leukocytosis. Continue with antibiotics. WBC is getting better. Culture has been negative so far. Probably 1 or 2 days we are going to be able to stop the antibiotics. 5. Physical deconditioning. Continue with physical therapy. Hopefully he will be discharged to a rehab center once surgery says that this patient can be discharged. cc: Saran Quintero MD
[2017-03-29] MEDS: VANCOMYCIN 1.5 GM in NS 250 ML IV SCH (16:09)
[2017-03-29] MEDS: MIRALAX PO SCH (20:14)
[2017-03-30] MEDS: ZOSYN 3.375 GM in NS 50 ML IV SCH ×4 (01:28→21:54)
[2017-03-30 05:29] LABS: MANUAL DIFF NEEDED? NO
[2017-03-30 05:44] LABS: BASO% 0.5 % (0.0-0.8); EOS# 0.33 X1000 (0.0-0.7); EOS% 2.9 % (0.0-10.0); HEMATOCRIT 32.6 % (42.0-52.0); HEMOGLOBIN 10.7 g/dL (14.0-18.0); IMM GRAN# 0.03 X1000 (0.0-0.04); IMM GRAN% 0.3 % (0.0-0.5); LYMPH% 28.2 % (20.5-51.1); MCH 27.6 PG (27-31); MCHC 32.8 g/dL (33-37); MCV 84.2 FL (81-99); MONO# 0.89 X1000 (0.11-0.59); MONO% 7.8 % (1.7-9.3); MPV 9.7 FL (7.4-10.4); NEUT% 60.3 % (42.2-75.2); PLT 491 X1000 (130-400); RBC 3.87 XMIL (4.7-6.1)
[2017-03-30 06:02] LABS: AGAP 9; BUN 9 mg/dL (8-22); CALCIUM 9.4 mg/dL (8.8-10.2); CHLORIDE 100 mmol/L (98-107); COSMO 271; POTASSIUM 3.8 mmol/L (3.5-5.1); SODIUM 136 mmol/L (136-145); TCO2 27 mmol/L (25-35)
[2017-03-30] MEDS: HUMALOG SUBQ SCH ×4 (06:25→21:54)
[2017-03-30] MEDS: LOVENOX SUBQ SCH (06:25)
[2017-03-30] MEDS ORDERED: DULCOLAX PR ONE (08:16)
[2017-03-30] MEDS: PRINIVIL PO SCH (09:41)
[2017-03-30] MEDS: PERIDEX MT SCH ×2 (09:41→21:53)
[2017-03-30] MEDS: MIRALAX PO SCH ×2 (09:41→21:54)
[2017-03-30] MEDS: NORVASC PO SCH ×2 (09:41→21:54)
[2017-03-30] MEDS: SANTYL OINT TOP SCH (11:38)
[2017-03-30] MEDS: NORCO-10 PO PRN ×2 (12:02→23:00)
--- NOTE | 2017-03-30 12:03 | PROGRESS NOTE ---
DATE: 03/30/2017 SUBJECTIVE: Mr. Graham is status post right gqomf-gew-mqdb amputation. The wound is intact. Seems to be healing well without evidence of infection or dehiscence. Physical therapy is working with the patient. He actually stood today. OBJECTIVE: His heart rate is 85, blood pressure 148/73, O2 saturation 100%. He has no work of breathing. His is afebrile. He is on IV vancomycin and Zosyn. His white blood cell count is 11.35. He still has a Frias catheter tube in place just because of his above the knee amputation stump. His hematocrit is 32%. His electrolytes are within normal limits. BUN is 9, creatinine 0.5. PLAN: We will continue IV antibiotics until his white blood cell count is normal. Continue physical therapy and encourage p.o. intake. cc: Moni Stephenson MD
--- NOTE | 2017-03-30 15:42 | PROGRESS NOTE ---
DATE: 03/30/2017 SUBJECTIVE: This patient is resting comfortably in bed. He is alert and oriented. He is still complaining of right lower extremity discomfort. He is tolerating p.o. He had a small loose bowel movement today. I will continue with the stool softer because is getting narcotics as well. OBJECTIVE: Vital Signs: Temperature 97.5 degrees, pulse 85, respiratory rate 14, blood pressure 148/73, oxygen saturation 100% on room air. HEENT: Head normocephalic. No trauma. PERRLA. Neck: Supple. No JVD. No masses. Central trachea. Chest: Clear to auscultation. No wheezing. No rales. Abdomen: Soft, nontender, nondistended. No hepatosplenomegaly. Extremity: He has a right AKA that is covered with a clean dressing. No signs of active bleed. Surgery Department following. Neurologic: The patient is alert and oriented. He is following commands. He has generalized weakness. LABORATORY: WBC 11.3, hemoglobin 10.7, hematocrit 32.6, platelets 491,000. Sodium 136, potassium 3.8, chloride 100, bicarbonate 27, BUN 9, creatinine 0.5 glucose 105, calcium 9.4. ASSESSMENT AND PLAN: 1. Right leg necrotic wound, status post right above-knee amputation. Continue with the same management and pain medication, and Physical Therapy on board. Surgery Department following this patient closely. 2. History of hypertension. Blood pressure looks a little bit better today. Continue with the same management. 3. Type 2 diabetes. Continue with the sliding-scale insulin and pattern of blood sugar. 4. Leukocytosis. This is getting better. Continue with antibiotics. Probably, I will stop the antibiotics in 1 or 2 days. 5. Physical deconditioning. Continue physical therapy. Hopefully, he will be discharged to a rehab center once Surgery clears this patient for discharge. cc: Saran Quintero MD
[2017-03-30] MEDS: VANCOMYCIN 1.5 GM in NS 250 ML IV SCH (17:45)
[2017-03-31] MEDS: MORPHINE IV PRN (01:13)
[2017-03-31] MEDS: ZOSYN 3.375 GM in NS 50 ML IV SCH (05:53)
[2017-03-31] MEDS: LOVENOX SUBQ SCH (05:53)
[2017-03-31] MEDS: HUMALOG SUBQ SCH ×2 (06:28→11:04)
[2017-03-31] MEDS: PRINIVIL PO SCH (11:45)
[2017-03-31] MEDS: NORVASC PO SCH (11:45)
[2017-03-31] MEDS: PERIDEX MT SCH (11:45)
[2017-03-31] MEDS: MIRALAX PO SCH (11:45)
[2017-03-31] MEDS: SANTYL OINT TOP SCH (11:46)
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
[2017-03-31 15:03] VITALS: BP 116/59
--- NOTE | 2017-03-31 17:25 | PROGRESS NOTE ---
DATE: 03/31/2017 Mr. Graham is status post right ftgyl-rji-cziy amputation. Overall, we feel he is doing well. He is able to eat. He is having bowel activity. The wound seems to be healing well without evidence of infection. His heart rate is 89, blood pressure 116/59, O2 saturation 94%. His Frias has been removed. His white blood cell count is 13.6. He is afebrile. He has been on IV Zosyn and vancomycin. We feel he is getting good enough to discharge to rehab and social work is working on that. I think he will need his skin clips for 2 weeks. I will be glad to see him in the office. He needs physical therapy for transfers. cc: Moni Stephenson MD
--- NOTE | 2017-04-02 14:00 | ED EKG INTERP ---
This chart was entered by Xi Garcias Scribe, acting as scribe for Jere Freedman MD. EKG Interpretation - EKG Time of EKG reading by physician:: 20:40 EKG Read and Signed by:: Jere Freedman EKG Interpretation (*Must complete 3 of following elements*): Abnormal Rate: 79 Rhythm: Sinus Rhythm with short pr QRS: RBB (incomplete) Comments: Prolonged QT, Abnormal ECG Attestation - Physician/ MARII Attestation The physician spent face to face time with patient:: Yes Advanced Practice Provider documentation review:: Supervising physician onsite and consulted in the evaluation and care of this patient. The physician did have a face to face encounter with the patient. This chart was documented by the indicated scribe, (Xi Garcias Scribe) and accurately reflects the services I performed and decisions made by me, Jere Freedman MD, as attested by the provider's signature.
== END 2017-03-31 16:30 ==
LOC: ED 18:30 → SUATTDRO 22:48 → EDIPHOLD 22:48 → 4N 03-25 18:25
PROVIDERS: ATTEND Internal Medicine